=== PATIENT | male | born 1975 | race Caucasian/White ===

== ENCOUNTER 2017-12-21 15:55 | Inpatient (IN) | payer OTHER ==
--- NOTE | 2017-12-21 17:11 | EDPHY ---
HPI/HX/ROS/PE/MDM Narrative: CHIEF COMPLAINT: Depression, suicidal thoughts HISTORY OF PRESENT ILLNESS: The patient is a 42 y/o male arriving voluntarily with his from his PCP's office for evaluation of depression and suicidal thoughts accelerating over the last 2 weeks. He has minimal prior medical history, though does say, "I've had a headache since I was 18 and it's never gone away;" he had negative brain imaging at some point. He tells me for several months, "I've had this paranoia and guilt about the health of my kids" regarding belief they have dental fluorosis and says, "I somehow feel responsible for that even though 9 other people and professionals have told me that's not what it is." His PCP describes this as rumination and his reports this has escalated over the last 2 weeks into a "cycle" and at times seems like a panic attack and has become debilitating. He went to his PCP for evaluation 12/12/17 and was prescribed Lexapro, which he has been taking daily without noticeable improvement. He says he hasn't eaten much during this time and has lost 20lbs. He describes sleeping for most of the day and great difficulty getting out of bed. He says he has no interest in any activities and just lies on the floor. Today, "I snapped and started getting aggressive with myself. I hit my head on the wall for no real reason other than maybe a combination of guilt, worry, and frustration." His says this event seemed to be provoked by the patient being left alone at home while she took their child to an appointment. When at baseline, the patient prefers to be alone and this is very uncharacteristic for him. She says, "I'm nervous leaving him on his own." The patient endorses vague suicidal thoughts, but denies a plan nor attempts to carry anything out. No ingestions, hallucinations, or angry thoughts towards others. He has never felt like this previously. He notes his father is terminally ill and his job is stressful. No family history of bipolar disorder in 1st degree family members. No fever, chills, chest pain, shortness of breath, palpitations, vomiting, diarrhea, urinary complaints. REVIEW OF SYSTEMS: Aside from elements discussed in the HPI, a comprehensive 10-point review of systems was reviewed and is negative. PAST MEDICAL HISTORY: Constant headache since age 18. Started Lexapro 10mg, 0.5mg clonazepam on 12/12/17. FAMILY HISTORY: Grandfather had severe panic attacks and anxiety in his 50s forcing him to retire early, then 6 years later of prostate cancer. SOCIAL HISTORY: at bedside. No cigarettes. Little alcohol use. No illicit drugs or marijuana. Employed as system software programmer. PCP: Kitty Deras VITAL SIGNS: Reviewed by me GENERAL: Well-developed, well-nourished, resting comfortably in no respiratory distress. Pleasant cooperative. HEENT: Atraumatic. Eyes: No icterus, no injection. Mild right anisocoria, pt reports is baseline since eye injury as a child. Mouth: moist mucous membranes. No erythema or lesions. Neck: supple with no adenopathy. LUNGS: Clear to auscultation bilaterally, no wheezes, rhonchi or rales. CARDIAC: Regular rate and rhythm, no rubs, murmurs or gallops. ABDOMEN: Soft, nontender, nondistended, bowel sounds normal. BACK: No CVA tenderness. EXTREMITIES: No trauma. No edema. Range of motion is normal throughout. NEURO: Alert and oriented, grossly nonfocal. SKIN: Warm and dry, no rash. PSYCHIATRIC: Normal mentation, no agitation. Portions of this note were transcribed by a medical lab director. I personally performed a history, physical exam, medical decision making, and confirmed accuracy of information the transcribed note. ED Course: This is a normally healthy 42 y/o male who presents with several months of paranoia, depressive symptoms, and suicidal ideation that have accelerated over the last 2 weeks. He has mild right anisocoria, but an otherwise unremarkable exam. Plan for standard psychiatric work up including IV, labs, UA, and mental health evaluation once medically cleared. Head CT ordered as patient's last brain imaging was over [address]: negative. Patient seen by [facility]. Recommendations at this point are to seek inpatient treatment. 11:00 p.m.: We are awaiting placement at [address] [place] [address]. MDM: Differential diagnoses for the patient's symptom complex was considered including but not limited to depression with psychotic features, major depression, suicidal ideation, anger management, bipolar disorder, acute psychosis. - Data Points Imaging Results: Imaging Impressions Head CT 12/21/17 18:29 Impression: Normal CT of the head. Specifically, negative for bleed or mass lesion. Results called and discussed with Lizeth Roger MD on 12/21/2017 at 19:17 Imaging: Discussed imaging studies w/ price changer Radiologist, I viewed and interpreted images myself Laboratory Results: Laboratory Results 12/21/17 17:25 18 17:25 18 18 18 17:25 17:25 17:15 WBC 10.76 10^3/uL H 10^3/uL (3.80-9.50) RBC 4.69 10^6/uL 10^6/uL (4.40-6.38) Hgb 15.7 g/dL g/dL (13.7-17.5) Hct 45.1 % % (40.0-51.0) MCV 96.2 fL fL (81.5-99.8) MCH 33.5 pg pg (27.9-34.1) MCHC 34.8 g/dL g/dL (32.4-36.7) RDW 12.8 % % (11.5-15.2) Plt Count 188 10^3/uL 10^3/uL (150-400) MPV 10.9 fL fL (8.7-11.7) Neut % (Auto) 74.5 % H % (39.3-74.2) Lymph % (Auto) 16.9 % % (15.0-45.0) [place] % (Auto) 7.6 % % (4.5-13.0) Eos % (Auto) 0.2 % L % (0.6-7.6) Baso % (Auto) 0.3 % % (0.3-1.7) Nucleat RBC Rel Count 0.0 % % (0.0-0.2) Absolute Neuts (auto) 8.02 10^3/uL H 10^3/uL (1.70-6.50) Absolute Lymphs (auto) 1.82 10^3/uL 10^3/uL (1.00-3.00) Absolute Monos (auto) 0.82 10^3/uL H 10^3/uL (0.30-0.80) Absolute Eos (auto) 0.02 10^3/uL L 10^3/uL (0.03-0.40) Absolute Basos (auto) 0.03 10^3/uL 10^3/uL (0.02-0.10) Absolute Nucleated RBC 0.00 10^3/uL 10^3/uL (0-0.01) Immature Gran % 0.5 % % (0.0-1.1) Immature Gran # 0.05 10^3/uL 10^3/uL (0.00-0.10) Sodium 143 mEq/L mEq/L (135-145) Potassium 4.2 mEq/L mEq/L (3.5-5.2) Chloride 106 mEq/L mEq/L (97-110) Carbon Dioxide 26 mEq/l mEq/l (22-31) Anion Gap 11 mEq/L mEq/L (8-16) BUN 15 mg/dL mg/dL (7-23) Creatinine 0.9 mg/dL mg/dL (0.7-1.3) Estimated GFR > 60 Glucose 83 mg/dL mg/dL (70-100) Calcium 9.7 mg/dL mg/dL (8.5-10.4) TSH 0.461 uIU/mL L uIU/mL (0.465-4.680) Salicylates < 1.0 mg/dL L mg/dL (2.0-20.0) Urine Opiates Screen NEGATIVE (NEGATIVE) Acetaminophen < 10 mcg/mL L mcg/mL (10-30) Urine Barbiturates NEGATIVE (NEGATIVE) Ur Phencyclidine Scrn NEGATIVE (NEGATIVE) Ur Amphetamine Screen NEGATIVE (NEGATIVE) U Benzodiazepines Scrn NEGATIVE (NEGATIVE) Urine Cocaine Screen NEGATIVE (NEGATIVE) U Marijuana (THC) Screen NEGATIVE (NEGATIVE) Ethyl Alcohol < 10 mg/dL mg/dL (0-10) General Time Seen by Provider: 12/21/17 16:30 Initial Vital Signs: Initial Vital Signs Temperature (C) 36.7 C 12/21/17 16:24 Heart Rate 75 12/21/17 16:24 Respiratory Rate 17 12/21/17 16:24 Blood Pressure 107/66 12/21/17 16:24 O2 Sat (%) 97 12/21/17 16:24 O2 Delivery Mode Room Air Allergies/Adverse Reactions: No Known Allergies Allergy (Verified 12/21/17 16:23) Home Medications: Medication Instructions Recorded CLONAZEPAM 12/21/17 Escitalopram Oxalate 12/21/17 Departure - Departure Disposition: [facility] IP Clinical Impression: Severe major depression Condition: Fair Referrals: Mendel Laws DO [Primary Care Provider] - As per Instructions Report Scribed for: Lizeth Roger Report Scribed by: Danitza Roland Date of Report: 12/21/17 Time of Report: 17:39
[2017-12-21 17:33] LABS: PLATELET COUNT 188 10^3/uL (150-400)
[2017-12-21] MEDS ORDERED: clonazePAM 0.5 MG TAB PO ONE (22:27)
[2017-12-22] MEDS ORDERED: MELATONIN 3 MG TAB PO PRN (00:43)
[2017-12-22] MEDS ORDERED: ACETAMINOPHEN 325 MG TAB PO PRN (00:43)
[2017-12-22] MEDS ORDERED: MAGNESIUM HYDROXIDE 30 ML UDCUP PO PRN (00:43)
[2017-12-22] MEDS ORDERED: NICOTINE POLACRILEX 2 MG GUM B PRN (00:43)
[2017-12-22] MEDS ORDERED: MAG HYDROX/AL HYDROX/SIMETH 30 ML UDCUP PO PRN (00:43)
[2017-12-22] MEDS ORDERED: OLANZapine DISINTEGR 5 MG TAB PO PRN (00:43)
[2017-12-22] MEDS: ESCITALOPRAM OXALATE 10 MG TAB PO SCH (12:03)
--- NOTE | 2017-12-22 14:31 | BCON ---
[f rep st] BEHAVIORAL HEALTH CONSULTATION DATE OF CONSULTATION: 12/22/2017 REFERRING PHYSICIAN: Gricel Mccabe MD REASON FOR REFERRAL: Medical clearance for inpatient behavioral health stay. HISTORY OF PRESENT ILLNESS: This patient came to the emergency department voluntarily with his from his primary care provider's office for evaluation of depression and suicidal thoughts, which had worsened over approximately 2 weeks. He was evaluated by the mental health team and admitted for further psychiatric care. He currently is without complaint. He is feeling better. He has had a much reduced appetite and weight loss, but reports his appetite is now normal. PAST MEDICAL HISTORY: 1. Concussion as a child. 2. Trauma to his right eye as a child. 3. Chronic headaches since age 18. PAST SURGICAL HISTORY: He has not had any surgeries. MEDICATIONS: He had been prescribed escitalopram 10 mg daily and clonazepam 0.5 mg twice daily p.r.n. ALLERGIES: There are no known drug allergies. SOCIAL HISTORY: He is . He lives with his . He works as a vp software. He is a nonsmoker and uses occasional alcohol use. FAMILY HISTORY: Significant for brain cancer in his father who will soon be on hospice, colon cancer in another relative, and melanoma in 2 other relatives who had metastatic disease to the brain and spinal cord. REVIEW OF SYSTEMS: He reports weight loss of approximately 20 pounds over several weeks. He reports he has not been eating. He otherwise denies symptoms referable to the thyroid including no tremors, no sweats, no hyperdefecation. Otherwise, a 10-point review of systems is negative. PHYSICAL EXAMINATION: VITAL SIGNS: Blood pressure is 116/66, heart rate is 88 , respiratory rate is 16, oxygen saturation is 93% on room air. Temperature is 36.7 degrees centigrade. His weight is 81.6 kg for a body mass index of 23.1. GENERAL: This is a well-nourished, well-developed man, dressed in street clothes, accompanied by his , cooperative and in no acute distress. HEENT: Extraocular movements are intact. He has very mild anisocoria with the left pupil slightly larger than the right. Pupils are reactive to light. Mucous membranes are moist. Dentition is in good condition. He has an uncrowded airway, Mallampati class 1. NECK: Supple with no thyromegaly and no thyroid nodules palpable. HEART: There is regular rate and rhythm with no murmurs, rubs, or gallops. LUNGS: Clear to auscultation bilaterally. ABDOMEN: Benign. EXTREMITIES: There is no cyanosis, clubbing, or edema. NEUROLOGIC: He is alert and oriented x3. Cranial nerves 2-12 are grossly intact. There is no focal weakness. Sensation is intact to light touch and gait is within normal limits. LABORATORY STUDIES: CBC revealed mild leukocytosis with a white blood cell count of 10.76. There was no left shift. Serum chemistry revealed normal renal function and electrolytes. TSH was very slightly suppressed at 0.461 with the lower limit of normal being 0.465. Toxicology screen in the serum was negative for salicylates, acetaminophen or ethyl alcohol, and the urine was negative for any substances of abuse. ASSESSMENT/RECOMMENDATIONS: 1. Mental health issues pending further evaluation and management per Psychiatry and the mental health team. 2. Weight loss, likely due to anorexia resulting from his mental health condition. 3. Suppressed TSH. He is currently without any other symptoms consistent with hyperthyroidism. It is possible that his suppressed TSH is related to stress due to mental health issues. Advised repeating TSH in approximately 6 weeks. 4. Chronic headache with a history of a concussion. There was no need to any initiate any specific treatment of this while he is inpatient. He can follow up with his primary care physician. 5. History of concussion. He had a normal head CT. It seems unlikely that his symptoms would have anything to do with a history of a brain injury or with chronic traumatic encephalopathy. I see no medical contraindications to this patient's continued stay at the inpatient behavioral health unit or to any psychiatric medications or procedures. Thank you very much for including me in the care of this patient and please do not hesitate to contact me or the hospitalist service should there be need for further medical evaluation. /[id number]/MODL MTDD
--- NOTE | 2017-12-22 16:58 | BAPA ---
[f rep st] ADMISSION PSYCHIATRIC ASSESSMENT DATE OF SERVICE: 12/22/2017 REASON FOR ADMISSION: The patient is a 42-year-old male with a lifelong history of excessi ve worrying and a complex of OCD symptoms who notices severe worsening of this over the last several weeks. He states that this has happened to him before in times of particular stress where his anxiet ies and worries will overwhelm him and then it typically resolves. He states, however, this time is much more intense and has led him to be unable to work and actually engaged in some self-harming. He reports several stresses including his father's terminal illness that has taken a turn for the worse . He states that he was notified 2 weeks ago and then he went out to visit him in [place] and feels v jacob powerless to help. He is also somewhat conflicted and feels guilty about his lack of a close rel ationship with his father. He has become overly concerned about the health of his children recently as well. He reports this dates back to his childhood when his younger brother was born when he was 1 0 years old. He states that he immediately began "worrying excessively that he would be hurt or kill ed and would be my fault." He states that he watched over him and "hovered" for his entire childhood to make sure that he was safe. He describes this as being in a "guilt, fear, guilt, fear" pattern i n which he feels guilty about action or inaction, specifically, in reference to the possibility that others will be harmed or that he will not adequately protect them. He states "I get really stuck on things and just can't let it go. I believe no matter what, I am going to be blamed if something bad happens and I feel guilty." He reports his current focus is on his children having possible fluorosi s. He states that this is some discoloration of the teeth caused by excessive fluoride use. He repo rts having noticed a white spot on his son's tooth and possibly a white streak on his daughter's toot h, both of which he is convinced are from excessive fluoride. He has contacted the [facility] [email or web address] who tell him there is not fluoride in the [email or web address] water supply, but he does not believe them. He also worries that he overly encouraged them to use toothpaste at a young age and that this might be a result of that, and is his fault. He admits to "being the maternal one," in the parenting of the mickey pena, stating that he is "always hovering over them taking care of them and worrying about them." For the last 2 weeks, this has been particularly intense and he feels paralyzed. He has been unable to work and has been home on leave. He spends much of his time lying on the floor in the posit ion and is having frequent if not daily panic attacks. He saw his primary care physician 2 weeks ago , who started him on Lexapro and Klonopin and he reports some benefit from the Klonopin for sleep, th ough is less beneficial for the panic attacks. He states that he feels mentally dull and sleepy on t he Klonopin and does not like to take it. Despite this, he has been taking it 0.25 mg at bedtime and 0.25 mg around 4:00 a.m. when he wakes up every morning. He states this is unusual for him to wake ups that early and he always feels very anxious and shaky. He has also been taking the Lexapro on a daily basis at bedtime. In addition to the excessive worries, he states that he has always engaged i n a lot of ordering behavior. He notes that on his desk at work all the papers are perfectly symmetr ical squared and that if they were not he have to stop his work to fix it. He is particular about th e order in which he does things such as his daily routine or his work. He has frequent catastrophic fears that others may be harmed or have been harmed through acts of omission or neglect on his part a nd he worries about this a lot, especially in regard to his family. He reports frequent repetitive t houghts and fears that have led to intense frustration, especially recently leading him to "feel like I am going to explode." He states that this leads to the anxiety attacks, but also led to him bangi ng his head into the wall several times yesterday. It was at this point that his took him to [facility] primary care physician who then referred him to the emergency department. The patient states that his appetite has been decreased. He felt sad and tearful for the last 2 weeks. He states he has los t 20 pounds. He denies any thoughts of suicide, but states "I do not think I could go on living like this. It's terrible." PAST PSYCHIATRIC HISTORY: Noncontributory for any previous psychiatric treatment of any kind. He castellano s no history of psychiatric hospitalizations or suicide attempts. ALLERGIES: No known medical allergies. CURRENT MEDICATIONS: Lexapro 10 mg daily and Klonopin 0.25 to 0.5 mg b.i.d. PAST MEDICAL HISTORY: Noncontributory with a history of chronic headaches. The patient received a C T scan of his brain in the emergency department, which showed no abnormalities. The patient states h geovani has had this worked up numerous times in the past and that he has had a constant headache since ldh. 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 He works from home and supervises several other engineers checking their work. He states this is a very detailed job. He also states that it is quite stressful recently as they are understaffed and he is facing the possibility of failing to meet a deadline for the first time in his career. He rep orts putting this pressure on himself and working excessively over the last month, adding to his stre ss. He is for 14 years and has 2 children, age 7 and 9. He states his marriage is happy and they have a good relationship and his kids are doing very well. His parents and siblings have moved from [place] to [place], where they currently reside. His father is reportedly dying at this time . The patient used to enjoy hiking and mountain biking, but has not done this for more than 6 months due to his work demands. He denies any legal problems, financial problems or other stresses at this time. He does state that he had a similar anxiety episode several months ago when they proposed put ting a cell tower next to his home. He states that he "just lost it" and could do nothing perseverat e about the potentially negative aspects of this. He states they eventually decided not to build it. He was relieved. SUBSTANCE ABUSE HISTORY: Patient states he drinks about 1 beer a month. Has no other substance use. FAMILY HISTORY: The patient's maternal grandfather "internalized everything." The patient states th at he "thought everything was his fault." He states that his he had to retire early from his job as a recreation officer because "he took every loan personally and could not let them go." He states that whe n a person would default on a loan, his grandfather would be extremely hurt by this and that eventual ly caused him to have to retire early. He at 61 from prostate cancer. The patient's mother has been diagnosed as addicted to gambling and had to go to recovery work. ADMISSION LABORATORY: CBC shows a white count up at 10.76 with neutrophil percentage up at 74.5%. S concepción chemistries are normal. TSH is low at 0.461. Urine drug screen is negative for all substances. Alcohol is less than detectable. MENTAL STATUS EXAMINATION: Reveals a thin though healthy-appearing male. He is neatly and appropriately dressed. He interacts well with examiner displaying good eye contact and overall plea tahira demeanor. He appears somewhat anxious with a rather rigid and closed body posture and constrict ed affect. He describes his mood as "pretty depressed." His thought process is linear and goal dire cted. His thought content reveals no evidence of psychosis. He is alert and oriented to person, omari ce, time, and situation, and his sensorium is clear. He denies any thoughts of suicide, homicide, or violence. His intellect appears to be above average as evidenced by his educational and occupationa l history, his fund of knowledge, and vocabulary. His insight and judgment appear to be good. IMPRESSION: Obsessive-compulsive disorder, possible unspecified depressive disorder, father's illnes s, work stress. The patient is a pleasant 42-year-old male with a lifelong history of obsessive compulsive disorder symptoms that have worsened in times of social stress. He states that he is unable to funct ion at this time and notes severe impairments in every area of functioning. He was placed on Lexapro and clonazepam by his primary care physician, which he has not had a chance to really see benefit fr om at this point. I discussed with him at length potential medication changes including switching fr om Lexapro to Celexa as I believe it is a slightly better anxiolytic. He does not care to do this, b ut is willing to increased from 10 to 20. We will also change the clonazepam to lorazepam as I belie ve this is a better anxiolytic with less of the sedating and heavy cognitive effects. The risks, yvette efits, and alternatives of both these medicines are discussed at length, as is the timeframe for resp onse. I emphasized to him that for anxiety, especially obsessive-compulsive anxiety, the maximum yvette efit for serotonin reuptake inhibitors is out to 12 weeks. The patient is accepting of this and stat es he is very relieved and hopeful that he has a corroboration of his treatment path. PLAN: 1. Admit to the behavior health services inpatient unit on an M1 hold. 2. Continue medications as above. 3. Engage in individual, group, and milieu psychotherapies and then introduce into cognitive behavio ral treatments. 4. The patient states that he believes he needs to be in a safe place for a couple of days because ernestina olivo feels completely out of control and unsafe. I believe this is reasonable. 5. Estimated length of stay is 3-5 days. /[id number]/MODL
[2017-12-22] MEDS: LORazepam 0.5 MG TAB PO PRN (17:32)
[2017-12-23] MEDS: LORazepam 0.5 MG TAB PO PRN ×2 (07:09→12:23)
[2017-12-23] MEDS: ESCITALOPRAM OXALATE 10 MG TAB PO SCH (08:35)
--- NOTE | 2017-12-23 13:14 | SOAPPROG ---
SOAP Progress Note Assessment/Plan: Assessment: 42 yo man with h/o OCD symptoms, who currently presents with worsening depression and thoughts of self-harm x 2 weeks. Plan: 12/23/17 13:09 1. Slightly elevated WBC's. Slightly suppressed TSH (0.461). Dr. Swenson recommends f/u with PCP in 6 weeks. 2. Patient has agreed to increase in Lexapro to 20 mg and switch from Clonazepam to Lorazepam for anxiety/panic. 3. Patient has been eating and sleeping better in hospital, but still c/o anxiety, thought less than prior to admit. Subjective: Met with patient, reviewed chart and d/w staff. Patient told CC this AM, "I haven't felt this good in months." He reports sleeping better in hospital and having more appetite and eating better. He slept 7 hours last night, which is significantly more than he was getting at home. He says he is still anxious and took PRN Ativan x 2 doses this AM. However, he reports anxiety is "much better" than he had prior to admit. He denies any SE's from increased dose of Lexapro. he denies any thoughts, plan or intent to hurt himself or anyone else. Objective: Vital Signs Temp Pulse Resp BP Pulse Ox 36.3 C 87 20 106/65 96 12/23/17 06:00 12/23/17 06:00 12/23/17 06:00 12/23/17 06:00 12/23/17 06:00 MSE: Affect: Anxious Mood: "Better" but "anxious" TP: Linear, goal-directed TC: Denies any SI/HI, no hallucination or paranoia Insight/Judgment: Fair - Time Spent With Patient Time Spent With Patient: 15" - Pending Discharge Pending Discharge Within 24 Hours: No Pending Discharge Within 48 Hours: No ICD10 Worksheet Patient Problems: Problems Problem Status Onset Severe major depression Acute
[2017-12-24] MEDS: ESCITALOPRAM OXALATE 10 MG TAB PO SCH (08:13)
[2017-12-24] MEDS: LORazepam 0.5 MG TAB PO PRN ×3 (08:14→17:14)
--- NOTE | 2017-12-24 13:43 | SOAPPROG ---
[facility] Progress Note Assessment/Plan: Assessment: 42 yo man with h/o OCD symptoms, who currently presents with worsening depression and thoughts of self-harm x 2 weeks. Plan: 12/23/17 13:09 1. Slightly elevated WBC's. Slightly suppressed TSH (0.461). Dr. Swenson recommends f/u with PCP in 6 weeks. 2. Patient has agreed to increase in Lexapro to 20 mg and switch from Clonazepam to Lorazepam for anxiety/panic. 3. Patient has been eating and sleeping better in hospital, but still c/o anxiety, thought less than prior to admit. 12/24/17 13:39 1. Feels much less anxious, only "needs" Ativan at Noon and before bed. 2. Slept 8-1/2 hrs, significantly "better" than at home. Denies any SI. 3. Wants to d/c tomorrow. Needs f/u appointments. Subjective: Met with patient, reviewed chart and d/w staff. Patient was pacing the halls this AM, but says he is feeling "better" and has "much less" anxiety than prior to admit. He says he is eager to go home and says his is comfortable with him returning home "as soon as possible." He agrees to stay in hospital until CC can help arrange intake appointments with therapist and prescriber. He denies any SI/HI. Objective: Vital Signs Temp Pulse Resp BP Pulse Ox 36.3 C 87 20 106/65 96 12/23/17 06:00 12/23/17 06:00 12/23/17 06:00 12/23/17 06:00 12/23/17 06:00 MSE: Affect: Euthymic Mood: "Better" TP: Linear TC: Denies any SI/HI, no psychosis Insight/Judgment: Fair - Time Spent With Patient Time Spent With Patient: 20" - Pending Discharge Pending Discharge Within 24 Hours: Yes Pending Discharge Within 48 Hours: No Pending Discharge Date: 12/25/17 (D/C on Monday after f/u appts finalized) Pending Discharge Time: 11:00 ICD10 Worksheet Patient Problems: Problems Problem Status Onset Severe major depression Acute
[2017-12-24 14:20] VITALS: BP 115/67
[2017-12-25] MEDS: LORazepam 0.5 MG TAB PO PRN (08:09)
[2017-12-25] MEDS: ESCITALOPRAM OXALATE 10 MG TAB PO SCH (08:09)
--- NOTE | 2017-12-25 13:24 | BDS ---
[f rep st] BEHAVIORAL HEALTH DISCHARGE SUMMARY REASON FOR ADMISSION: Patient is a 42-year-old man, with a lifelong history of excessive worrying and a complex of OCD symptoms, who noted severe worsening of his OCD and anxiety for the past several weeks. He states that this has happened to him before in times of particular stress when his anxiety and worry will overwhelm him, and it typically resolves. He says, however, this time it is much more intense and has led him to be unable to work and actually engaged in some self-harming. He reports several stressors including his father's terminal illness that has taken a turn for the worse. He was notified 2 weeks ago when he went to visit his father in [place], and he feels powerless to help his dad. He is also somewhat conflicted and feels guilty about his lack of a close relationship with his father. He has become overly concerned about the health of his children recently as well. He says this dates back to when his younger brother was born when he was 9 years old. He says that he immediately began to "worry excessively that he would be hurt or killed, and it would be my fault." For the last 2 weeks, the patient says that he has been paralyzed by fear that his young children have had fluoride toxicity. He has been unable to work and has been home on leave. He spends much of his time lying on the floor and frequent, if not daily, panic attacks. He saw his primary care physician 2 weeks prior to admission, who started him on Lexapro and Klonopin, and he says he had some benefit from Klonopin for sleep but less beneficial for panic. Patient says "I feel like I'm going to explode." He has been sad and tearful for the last 2 weeks. He has lost 20 pounds. He denies any thoughts of suicide but states "I do not think I could go on living like this. It's terrible." ADMITTING DIAGNOSES: 1. Obsessive compulsive disorder. 2. Possible unspecified depressive disorder. 3. Psychosocial stressors include father's terminal illness, work-related issues, and stress. Admitting physical examination was done by Dr. Danial Swenson. Please see his H and P for details. Admission labs were done in the [facility] ED. White cell count was 10.76, hemoglobin was 15.7, hematocrit 45.1, platelet count 188. Sodium was 143, potassium was 4.2, chloride 106, BUN was 15, creatinine 0.9, glucose 83, calcium 9.7. TSH was 0.461. Tox screen was negative for all drugs of abuse. Salicylate and acetaminophen levels were both undetected. Ethyl alcohol level was less than 10. HOSPITAL COURSE: At time of admission, patient had a lengthy conversation with Dr. Brian Girard about the most effective ways to treat his OCD symptoms as well as his anxiety and panic. Dr. Girard recommended increasing the patient's SSRI from 10 mg to 20 mg. patient gave informed consent for this increase to happen. Patient understands that it takes several weeks for the medication become fully effective and that it is not something that he is likely to see immediate benefits from. Dr. Girard also discussed with the patient various uses in the short term for addressing his anxiety and panic with benzodiazepines. Dr. Girard recommended changing the patient from clonazepam to lorazepam. Patient gave informed consent for both of these medication changes which were started on 12/22/2017. When this MD met with the patient on 12/23/2017, patient stated that, "I haven't felt this good in months. " He says that he is sleeping better in the hospital and had more of an appetite and was eating which he had not been doing at home. He slept 7 hours on Monday night which is significantly more than he was getting at home. He says he is still anxious, and he took 2 doses of p.r.n. Ativan. However, he reports that his anxiety is "much better" than it was prior to his admission. He denied any side effects from the increased dose of Lexapro. He denies any thoughts, plans, or intent to hurt himself or anyone else. Dr. Swenson noted in his H and P that the patient had slightly elevated white cell count and a slightly suppressed TSH, which was 0.461, only slightly below normal. Dr. Swenson recommended the patient follow up with his PCP in 6 weeks for repeat thyroid panel. On 12/24/2017, the patient continued to endorse improvement in his mood. He denied feeling depressed, sad. Denied any thoughts , plans, or intent to hurt himself. He was more future oriented and optimistic. He was interested in getting connected with mental health providers on an outpatient basis and doing some therapy, such as cognitive behavioral therapy, in order to address his stress and help him manage his anxiety better. He says that he is only needing to use the Ativan at noon and before bedtime, and he slept 8.5 hours on Monday night which is significantly better than he was sleeping prior to his admission. He also notes improved appetite and is eating more and is looking forward to going back home. Patient did sign himself in voluntarily and, on Monday morning, he was looking forward to getting set up with outpatient counseling and a therapist, as well as a medication prescriber to continue to monitor him for his medications. Patient denied any thoughts, plans, or intent to hurt himself or anyone else. He reported improvement in his anxiety and more stability in his mood. He says that he was not feeling as disabled by intrusive thoughts or by his obsessive thoughts or compulsive worrying. He said he still did worry about fluoride toxicity for his kids but that was not paralyzing him or leading him to be unable to function. spoke with the Mail Order Clerk, Rivera, who is helping to arrange the patient's aftercare. Rivera left messages with the care support representative in the [facility], Seng, and the plan was for the patient to have an intake appointment at the [facility] outpatient [facility], see a prescriber and a therapist in the clinic, and get more information about their IOP program which the patient said he was interested in considering after discharge. CONDITION AT DISCHARGE: Patient was stable. His affect was euthymic. He reported significantly less anxiety. No depression. No sadness. He was not endorsing any thoughts, plans, or intent to hurt himself or anyone else. He was compliant with his medications and looking forward to his outpatient treatment. DISCHARGE MEDICATIONS: Include Lexapro 20 mg p.o. daily, 30 tablets, no refills , and lorazepam 0.5 mg p.o. q.6 hours p.r.n. for anxiety, 30 tablets, no refills. DISCHARGE DIAGNOSES: 1. Depression, not otherwise specified. 2. Obsessive compulsive disorder. 3. Rule out generalized anxiety disorder. 4. Panic disorder without agoraphobia. 5. Psychosocial stressors include father's terminal illness, work stress, and concerns about his children's physical well-being. DISPOSITION: Patient was discharged from the hospital in the care of his to return back home to his family. He has a followup appointment in the [facility] to see Dr. Lisa Godinez for medication management and to be assigned individual therapist, as well as to be provided information about their intensive outpatient group therapy program. LEGAL COURSE: Patient was changed to voluntary status at the expiration of his M1 hold prior to his discharge. /[id number]/MODL MTDD
== END 2017-12-25 13:25 | disposition home or self-care (01) | DRG 881 ==
LOC: BBEH 12-22 00:15
PROVIDERS: ADMIT Psychiatry & Neurology Behavioral Neurology & Neuropsychiatry; ATTEND Psychiatry & Neurology Psychiatry
DX: F32.9 Major depressive disorder, single episode, unspecified (principal); F42.9 Obsessive-compulsive disorder, unspecified; R45.851 Suicidal ideations; F41.0 Panic disorder [episodic paroxysmal anxiety]; R51 Headache; R94.6 Abnormal results of thyroid function studies; Z56.6 Other physical and mental strain related to work; Z63.79 Other stressful life events affecting family and household
CPT/HCPCS: 80305; G0480